=== PATIENT | female | born 1995 | race Two or more races ===

== ENCOUNTER 2024-03-05 19:50 | Emergency (ER) | payer OTHER ==
[~2024-03-05] VITALS: Ht 157.5 cm; Wt 61.8 kg
[2024-03-05 20:01] VITALS: BP 117/70; PULSE 92; RESP 16; TEMP 98.7
[2024-03-05] MEDS ORDERED: HYDR2.5C39 TOP (22:17)
[2024-03-05 22:34] VITALS: O2SAT 98
== END 2024-03-05 23:13 | disposition home or self-care (01) ==
LOC: ER 19:50
DX: K64.4 Residual hemorrhoidal skin tags (principal); F17.210 Nicotine dependence, cigarettes, uncomplicated; F15.90 Other stimulant use, unspecified, uncomplicated; Z79.899 Other long term (current) drug therapy